=== PATIENT | female | born 1965 | race Caucasian/White ===

== ENCOUNTER 2018-02-21 18:36 | Emergency (ER) | payer BC ==
[~2018-02-21] VITALS: Ht 177.8 cm; Wt 104.3 kg
[2018-02-21 19:03] VITALS: BP 127/70
[2018-02-21] MEDS ORDERED: HYDROcodone/APAP 5/325MG 1 TAB TABLET PO ONE (19:30)
--- NOTE | 2018-02-21 20:59 | RAD ---
CT left lower extremity without contrast HISTORY: Pain after fall Axial helical images were obtained of the left knee without contrast and axial coronal and sagittal reconstruction was performed. There is a minimally displaced fracture of the posterior lateral corner of the tibial plateau. The remaining visualized osseous structures appear intact. There is a small hemarthrosis. IMPRESSION: Minimally displaced posterior lateral corner fracture of the tibial plateau. Small hemarthrosis. Electronically signed by: Reggie Frey III, MD (02/21/2018 8:56 PM) [facility]
[2018-02-21] MEDS ORDERED: HYDR-3164 PO (21:23)
--- NOTE | 2018-02-21 21:23 | PHYS DOC ---
Past Medical History Past Medical History: Depression, GERD Additional Past Medical Histor: CHRONIC BACK PAIN Past Surgical History: Cholecystectomy, Hysterectomy Alcohol Use: None Drug Use: None Adult General Chief Complaint Chief Complaint: LOWEREXTREMITY INJURY HPI HPI Patient is a 52 year old female who presents to the ER with complaints of left anterior knee pain, left leg pain, and left lateral ankle pain after stepping in a snow covered storm drain and falling forward onto her knees. Pt denies any head injury or LOC. She denies any numbness or tingling of her LLE . She reports her pain is a 10/10 on the pain scale and has not taken anything for relief of her pain [employer]. The injury occurred at approximately 1700 this evening. Review of Systems Review of Systems Musculoskeletal: See HPI Integument: Denies rash or skin lesions [] Neurologic: Denies headache, focal weakness or sensory changes [] All other systems were reviewed and found to be within normal limits, except as documented in this note. Current Medications Current Medications Current Medications Medications (Trade) Dose Ordered Sig/Gerard Start Time Stop Time Status Last Admin Dose Admin Acetaminophen/ Hydrocodone Bitart (Lortab 5/325) 1 tab 1X ONCE 02/21/18 19:30 02/21/18 19:31 DC 02/21/18 19:42 1 TAB Allergies Allergies Allergies Coded Allergies Type Severity Reaction Last Updated Verified aspirin Allergy Severe HIVES 02/21/18 Yes Physical Exam Physical Exam Constitutional: Well developed, well nourished, no acute distress, non-toxic appearance, obese. [] HENT: Normocephalic, atraumatic, bilateral external ears normal, nose normal. [] Eyes: conjunctiva normal, no discharge. [] Skin: Warm, dry, no erythema, no rash. [] Extremities: No cyanosis, no clubbing, mild swelling noted below left knee, tenderness to palpation of lateral proximal tibia and lateral left ankle, no palpable deformities or crepitus, limited ROM of L knee and L ankle due to pain intolerance Neurologic: Alert and oriented X 3, normal motor function, normal sensory function, no focal deficits noted. [] Psychologic: Affect normal, judgement normal, mood normal. [] Current Patient Data Vital Signs Vital Signs Date Time Temp Pulse Resp B/P (MAP) Pulse Ox O2 Delivery O2 Flow Rate FiO2 02/21/18 19:03 98.0 63 18 127/70 (89) 96 Room Air 98.0 EKG EKG [] Radiology/Procedures Radiology/Procedures X-ray of left knee suspicious for lateral tibial plateau fracture read by Dr. Conn PROCEDURE: CT LOWER EXTREMITY WO LEFT CT left lower extremity without contrast HISTORY: Pain after fall Axial helical images were obtained of the left knee without contrast and axial coronal and sagittal reconstruction was performed. There is a minimally displaced fracture of the posterior lateral corner of the tibial plateau. The remaining visualized osseous structures appear intact. There is a small hemarthrosis. IMPRESSION: Minimally displaced posterior lateral corner fracture of the tibial plateau. Small hemarthrosis.[] [address] Cole and advised of patient and need for follow up. Dr. Cole agrees with POC and will follow-up in office with patient. Course & Med Decision Making Course & Med Decision Making Pertinent Labs and Imaging studies reviewed. (See chart for details) Dx: Closed left tibial plateau fracture Pt instructed to be non-weight bearing. Pt was placed in knee immobilizer and provided with a walker. Prescription for hydrocodone written. Follow up with Dr. Cole, call in the morning for an appointment. Return to the ER for increased swelling, pain, or worsening symptoms. Patient verbalized an understanding of home care, medications, follow-up, and return to ED instructions and was in agreement with the plan of care. Advised Dr. Cole of patient and dx, he will follow up with pt in office. [] Staff Physician Addendum: I was working in the ER during the course of this patient's visit. I was available for consultation as needed, but I was not directly involved in the care of this patient. Dragon Disclaimer Dragon Disclaimer This electronic medical record was generated, in whole or in part, using a voice recognition dictation system. Departure Departure Impression: Primary Impression: Closed fracture of left tibial plateau Disposition: 01 HOME, SELF-CARE Condition: STABLE Referrals: UNKNOWN PCP NAME (PCP) TISH COLE II, MD Patient Instructions: Tibial Plateau Fracture, Displaced, Adult Additional Instructions: Fill prescription and use as directed. NO WEIGHT BEARING on your left leg. Use the provided walker to keep yourself from bearing weight on your left leg. Wear the knee immobilizer provided. Rest, ice, and elevate the affected leg. Call Dr. Cole's office in the morning to schedule a follow up appoinement. Return to the ER for increased pain, swelling, or worsening symptoms. Scripts Hydrocodone/Apap 5-325 (NORCO 5-325 TABLET) 1 Each Tablet 1-2 TAB PO Q4-6HRS PRN for PAIN MDD 8 tab for 3 Days, #20 TAB Prov: CECILE BUCHANAN [employer] 02/21/18 Problem Qualifiers Primary Impression: Closed fracture of left tibial plateau Encounter type: initial encounter Qualified Codes: S82.142A - Displaced bicondylar fracture of left tibia, initial encounter for closed fracture CECILE BUCHANAN [employer] Feb 21, 2018 21:23 SHILPI CONN MD Feb 23, 2018 01:10
--- NOTE | 2018-02-22 02:09 | RAD ---
AP and lateral left tibia and fibula radiographs 02/21/2018 CLINICAL HISTORY: Fall with injury to the left lower leg. 2 AP and 2 lateral digital radiographs of the left tibia and fibula were obtained. No fracture or dislocation is seen. No radiopaque foreign body is noted. Moderate to large enthesophytes are seen involving the posterior left calcaneus. IMPRESSION: No fracture or dislocation of the left tibia or fibula is seen. Electronically signed by: Elbert Rapp MD (02/22/2018 2:06 AM) [facility]
== END 2018-02-21 21:39 | disposition home or self-care (01) ==
LOC: ER 18:36
DX: S82.142A Displaced bicondylar fracture of left tibia, initial encounter for closed fracture (principal); M25.562 Pain in left knee; M25.572 Pain in left ankle and joints of left foot; G89.29 Other chronic pain; F32.9 Major depressive disorder, single episode, unspecified; K21.9 Gastro-esophageal reflux disease without esophagitis; Z90.49 Acquired absence of other specified parts of digestive tract; Z90.710 Acquired absence of both cervix and uterus; W00.0XXA Fall on same level due to ice and snow, initial encounter; Y93.89 Activity, other specified; Y92.89 Other specified places as the place of occurrence of the external cause; Y99.8 Other external cause status
CPT/HCPCS: 29505; 73590; 73700; 99284